=== PATIENT | male | born 1975 | race Caucasian/White ===

== ENCOUNTER 2016-09-03 08:20 | Emergency (ER) ==
[2016-09-03 08:28] VITALS: BP 139/87
[2016-09-03 09:35] LABS: MANUAL DIFF NEEDED? NO
[2016-09-03 09:40] LABS: BASO% 0.3 % (0.0-0.8); EOS# 0.22 X1000 (0.0-0.7); EOS% 3.6 % (0.0-10.0); HEMATOCRIT 44.6 % (42.0-52.0); HEMOGLOBIN 15.1 g/dL (14.0-18.0); LYMPH% 27.5 % (20.5-51.1); MCH 30.1 PG (27-31); MCHC 33.9 g/dL (33-37); MONO# 0.52 X1000 (0.11-0.59); MONO% 8.4 % (1.7-9.3); MPV 10.8 FL (7.4-10.4); NEUT% 60.2 % (42.2-75.2); PLT 223 X1000 (130-400); RBC 5.01 XMIL (4.7-6.1)
[2016-09-03 09:56] LABS: AGAP 13; ALBUMIN 4.3 g/dL (3.5-5.0); ALKALINE PHOSPHATASE 71 U/L (32-122); BUN 17 mg/dL (8-22); CALCIUM 9.1 mg/dL (8.8-10.2); CHLORIDE 99 mmol/L (98-107); COSMO 281; GOT 31 U/L (10-34); GPT 27 U/L (10-44); LIPASE 25 U/L (13-60); POTASSIUM 4.2 mmol/L (3.5-5.1); SODIUM 140 mmol/L (136-145); TCO2 28 mmol/L (25-35); TOTAL BILIRUBIN 1.47 mg/dL (0.20-1.00); TOTAL PROTEIN 7.1 g/dL (6.3-8.3)
[2016-09-03] MEDS ORDERED: TORADOL IM ONE (10:03)
--- NOTE | 2016-09-03 10:07 | PROVIDER DOCUMENTATION ---
HPI-General Adult - General Chief Complaint: General Adult Stated Complaint: EXTREMITY PAIN Time Seen by Provider: 09/03/16 09:12 Source: patient, old records Allergies/Adverse Reactions: Patient Allergies Allergy/AdvReac Type Severity Reaction Status Date / Time No Known Allergies Allergy Verified 09/03/16 09:18 Home Medications: Ranitidine HCl [Zantac] 150 mg PO BID 09/03/16 - History of Present Illness -Gen Adult Nature of Presenting Problems: This pt, who has a hx of Hep C, presents today c complaints of generalized joint pain. He states that this happens "on occasion." He reports that he was recently off work for about 2 months but started back yesterday and now his joints are "all locked up." No other issues or complaints. Location of Pain/Injury: reports: generalized Quality of Pain: reports: aching, cramping Severity: reports: mild Onset/Duration: reports: 24 hours ago Timing: reports: still present Associated Symptoms: reports: muscle aches Similar Symptoms Previously?: Yes Recently seen or treated by another doctor?: No Review of Systems - Adult - REVIEW OF SYSTEMS - ADULT Constitutional: reports: no symptoms reported. denies: chills, fever Eyes: reports: no symptoms reported. denies: discharge, dry eyes Ears, Nose, Mouth & Throat: reports: no symptoms reported. denies: ear discharge, ear pain Cardiovascular: reports: no symptoms reported. denies: chest pain, edema Respiratory: reports: no symptoms reported. denies: chronic cough, cough Gastrointestinal: reports: no symptoms reported. denies: abdominal pain, hematemesis Genitourinary: reports: no symptoms reported. denies: dysuria, discharge Musculoskeletal: reports: joint pain, muscle aches. denies: bone pain, back pain, frequent leg cramps, joint swelling Integumentary: reports: no symptoms reported. denies: hives, hair loss Neurological: reports: no symptoms reported. denies: ataxia, dizziness/vertigo Psychiatric: reports: no symptoms reported. denies: anxiety, anti-depressant use Endocrine: reports: no symptoms reported Hematologic/Lymphatic: reports: no symptoms reported Allergic/Immunologic: reports: no symptoms reported All Other Systems: Reviewed and Negative Past History - Adult - PAST MEDICAL HISTORY-ADULT Review of Records: reports: Old Records Reviewed, Nursing Assessment Review, Medications Reviewed, Social history reviewed & non-contributory. Major Childhood Illnesses: reports: denies history Cardiovascular: reports: denies history Respiratory: reports: denies history Gastrointestinal: reports: hepatitis Obstetrical/Gynecological: reports: denies history Genitourinary: reports: denies history Musculoskeletal: reports: denies history Neurological: reports: denies history Endocrine/Immune: reports: denies history Other Conditions: reports: denies history - PRIOR SURGERIES/PROCEDURES Surgical/Procedure History: reports: none Physical Exam-General - PHYSICAL EXAM-ADULT Initial Vital Signs Reviewed: Yes - CONSTITUTIONAL General Appearance: appears well, alert, no apparent distress. negative: lethargic, slow to respond - EYES Eyes: PERRL/EOMI, pink conjunctivae - HEAD, EARS, NOSE, MOUTH & THROAT HENMT: normocephalic/atraumatic, moist mucous membranes, normal ENT inspection - NECK Neck: non-tender, full range of motion, normal inspection - RESPIRATORY Respiratory: chest non-tender, lungs clear, normal breath sounds - CARDIOVASCULAR Cardiovascular: normal peripheral pulses, regular rate, rhythm, no edema. negative: bradycardia, tachycardia - GASTROINTESTINAL (ABDOMEN) Abdominal Exam: normal bowel sounds, non tender, soft - LYMPHATIC Lymphatic: no adenopathy - MUSCULOSKELETAL Back Exam: normal inspection, no CVA tenderness, no vertebral tenderness Extremity: normal range of motion, non-tender, normal gait - SKIN Integumentary: normal color, normal turgor, warm/dry. negative: jaundice - NEUROLOGIC Neurologic: grossly normal, no motor/sensory deficits. negative: facial droop, focal weakness, motor weakness, sensory deficit - PSYCHIATRIC Psych/Mental Status: normal mood/affect, normal thought content, normal thought process, oriented x 3 Progress - PLAN OF CARE/RESULTS Progress/Plan/Lab Results: Laboratory Tests 09/03/16 09/03/16 08:27 08:27 WBC 6.19 RBC 5.01 Hgb 15.1 Hct 44.6 MCV 89.0 MCH 30.1 MCHC 33.9 RDW Std Deviation 12.7 Plt Count 223 MPV 10.8 H Immature Gran % (Auto) 0.0 Neut % (Auto) 60.2 Lymph % (Auto) 27.5 [place] % (Auto) 8.4 Eos % (Auto) 3.6 Baso % (Auto) 0.3 Immature Gran # (Auto) 0.00 Neut # (Auto) 3.73 Lymph # (Auto) 1.70 [place] # (Auto) 0.52 Eos # (Auto) 0.22 Baso # (Auto) 0.02 Sodium 140 Potassium 4.2 Chloride 99 Carbon Dioxide 28 Anion Gap 13 BUN 17 Creatinine 1.0 Estimated GFR/1.73 m2 > 60 BUN/Creatinine Ratio 17 Glucose 95 Calculated Osmolality 281 Calcium 9.1 Magnesium 2.0 Total Bilirubin 1.47 H AST 31 ALT 27 Alkaline Phosphatase 71 Total Protein 7.1 Albumin 4.3 Globulin 2.8 Albumin/Globulin Ratio 1.5 Lipase 25 Orders Category Date Time Status CBC WITH ELECTRONIC DIFF [HEME] Stat Lab 09/03/16 08:27 Completed COMPREHENSIVE METABOLIC PANEL [CHEM] Stat Lab 09/03/16 08:27 Completed LIPASE [CHEM] Stat Lab 09/03/16 08:27 Completed MAGNESIUM [CHEM] Stat Lab 09/03/16 08:27 Completed Ketorolac [Toradol] Med 09/03/16 10:03 Discontinued 30 mg IM NOW ONE Vital Signs Temp Pulse Resp BP Pulse Ox 09/03/16 08:26 97.8 F 84 16 139/87 100 No Known Allergies Allergy (Verified 09/03/16 09:18) Ranitidine HCl [Zantac] 150 mg PO BID 09/03/16 Laboratory 09/03/16 09/03/16 08:27 08:27 WBC 6.19 RBC 5.01 Hgb 15.1 Hct 44.6 MCV 89.0 MCH 30.1 MCHC 33.9 RDW Std Deviation 12.7 Plt Count 223 MPV 10.8 H Immature Gran % (Auto) 0.0 Neut % (Auto) 60.2 Lymph % (Auto) 27.5 [place] % (Auto) 8.4 Eos % (Auto) 3.6 Baso % (Auto) 0.3 Immature Gran # (Auto) 0.00 Neut # (Auto) 3.73 Lymph # (Auto) 1.70 [place] # (Auto) 0.52 Eos # (Auto) 0.22 Baso # (Auto) 0.02 Sodium 140 Potassium 4.2 Chloride 99 Carbon Dioxide 28 Anion Gap 13 BUN 17 Creatinine 1.0 Estimated GFR/1.73 m2 > 60 BUN/Creatinine Ratio 17 Glucose 95 Calculated Osmolality 281 Calcium 9.1 Magnesium 2.0 Total Bilirubin 1.47 H AST 31 ALT 27 Alkaline Phosphatase 71 Total Protein 7.1 Albumin 4.3 Globulin 2.8 Albumin/Globulin Ratio 1.5 Lipase 25 Departure - Departure Time of Disposition Order: 10:06 DIAGNOSIS: Joint pain Qualifiers: Joint pain location: unspecified Qualified Code(s): M25.50 - Pain in unspecified joint Disposition: HOME 01 Certified Medical Emergency: Urgent Condition: Good Additional Instructions: Take medication as prescribed. Follow up with your primary care provider. ED Follow Up Instructions: You have been treated by a care provider in the Emergency Department. These instructions are being provided to you so you can have an understanding of how to care for yourself upon discharge. Upon discharge from the Emergency Department, you are responsible for making arrangements for follow-up care by a physician of your choice. Take all prescribed medications as directed. Return to the Emergency Department immediately for any new or worsening symptoms. You may call the Physician Referral phone number at [phone] to obtain a list of Physicians who are taking new patients. Prescriptions: Cyclobenzaprine [Flexeril] 10 mg PO TID #20 tablet Diclofenac Na D.r. [Voltaren] 50 mg PO BID #30 tab Attestation - Physician/ Mid-level Attestation Patient care was provided by Mid-level provider (ACCOUNTS RECEIVABLE ASSOCIATE/PA):: Yes Mid-level provider:: Reilly Graham Mid-level documentation review:: The Mid-level provider documentation, treatment plan and medical decision making was reviewed by the physician who agrees with all treatment and medical decision making by the MLP.
== END 2016-09-03 10:15 | disposition home or self-care (01) ==
LOC: ED 08:20
DX: M25.50 Pain in unspecified joint (principal); M79.1 Myalgia; K75.9 Inflammatory liver disease, unspecified; Z79.899 Other long term (current) drug therapy
CPT/HCPCS: 80053; 83690; 83735; 85025; 96372; J1885